=== PATIENT | female | born 1995 | race Caucasian/White ===

== ENCOUNTER 2016-02-14 14:54 | Emergency (ER) | payer OTHER ==
[~2016-02-14] VITALS: Ht 162.6 cm; Wt 71.4 kg
[~2016-02-14 14:54] MED LIST: AZIT250T4 PO; BUSP10TA2 PO; HYDR-3797 PO; HYDR50CA PO; LEVA15HF5 IH; ONDA-54 PO; RIZA10TA23 PO; VALP250C2 PO
[2016-02-14 15:01] VITALS: BP 115/75; PULSE 100; RESP 18; O2SAT 100
--- NOTE | 2016-02-14 15:58 | ED.REPORT ---
HPI-Abd Pain F Under 40 Date of Service Feb 14, 2016 ED Provider: Rasta Reich PA-C Yolis is a 20-year-old female with a chief complaint of abdominal pain. Patient reports a 4 day history of stabbing intermittent periumbilical pain that migrates laterally sometimes. She reports vomiting approximately 6 times significant for dark red blood. Complaint of orthostatic lightheadedness. Patient states that she is on her period right now his last approximately 2 weeks with heavy bleeding which she says is normal for her. Attempted to treat her abdominal pain with Midol and naproxen neither of which worked. Patient reports a history of ulcers and anxiety. Nursing Notes Stated Complaint: SOB/ABDOMINAL PAIN Chief Complaint: FLU/Cold Symptoms Nursing Notes Reviewed: Yes Allergies: Coded Allergies: hydrocodone (Verified Allergy, Severe, Hives, Itching, SOB, Throat Tightness, 02/14/16) shellfish derived (Verified Allergy, Severe, Anaphylaxis, 02/14/16) ethyl alcohol (Verified Allergy, Intermediate, Rash,Itching, 02/14/16) RUBBING ALCOHOL chocolate flavor (Verified Allergy, Unknown, 02/14/16) ketorolac (Verified Allergy, Unknown, 01/05/16) Scheduled Azithromycin (Zithromax (Z-John)) 250 Mg Tablet 250 MG PO DIRECTED Take two tablets by mouth on day 1, then take one tablet daily on days 2 through 5. Buspirone (Buspirone) 10 Mg Tablet 10 MG PO BID Buspirone (Buspirone) 10 Mg Tablet 10 MG PO BID Omeprazole (Omeprazole) 20 Mg Capsule.dr 20 MG PO DAILY Rizatriptan ODT (Maxalt STONE ROUGHER) 10 Mg Tablet 10 MG PO QID Valproic Acid (Valproic Acid) 250 Mg Capsule 250 MG PO BID Valproic Acid (Valproic Acid) 250 Mg Capsule 250 MG PO TID Swallowed whole without chewing to avoid local irritation of the mouth and throat. Scheduled PRN Hydroxyzine Pamoate (HydrOXYzine Pamoate) 25 Mg Capsule 25 MG PO TID PRN PRN For Itching Hydroxyzine Pamoate (Vistaril) 50 Mg Capsule 50 MG PO TID PRN PRN For Anxiety Levalbuterol Tartrate (Xopenex Hfa) 15 Gm Hfa.aer.ad 1 PUFF IH Q4 PRN PRN For Wheezing Ondansetron (Ondansetron) 8 Mg Tablet 8 MG PO QID PRN PRN For Nausea General Time Seen by MD: 15:41 Chief Complaint Abdominal pain Past Medical History Past Medical History ADHD Hemorrhoids bipolar disorder PTSD anxiety Reports: Depression, Migraines Past Surgical History finger fracture repair polydactyly surgery as a child Reports: Appendectomy Smoking History Current Every Day Smoker Social History Alcohol Use: Denies alcohol use Drug Use: Denies drug use Other Social History: Good social support, Local resident Occupation staying with boyfriend Ambulatory Status Independent Review of Systems General: Denies fever, chills, malaise. HEENT: Denies congestion, headache, sore throat. Respiratory: Denies dyspnea, cough, shortness of breath, wheezing. Cardiovascular: Denies chest pain, palpitations. Gastrointestinal: Admits vomiting, abdominal pain, hematemesis. Denies diarrhea , melena, hematochezia Genitourinary: Denies frequency, urgency, dysuria, hematuria. Admits Menorrhagia Otherwise as noted in HPI. Physical Exam General: Well appearing, well developed, well nourished, no acute distress. Head: Atraumatic, normocephalic. Eyes: No scleral icterus or injection. No discharge. Vision grossly intact. ENT: Voice clear, hearing grossly intact. Respiratory: Regular rate and rhythm. Breath sounds present, clear to auscultation and equal bilaterally. Cardiovascular: Slightly tachycardic. Regular rhythm, without murmur, gallop or rub. No pedal edema. Gastrointestinal: Abdomen flat and non-tender without guarding or rebound. Bowel sounds normoactive. Skin: Warm and dry. Neurological: Grossly nonfocal. Psychological: alert and oriented. Speech appropriate, linear and logical. Behavior appropriate. Initial Vital Signs Vital Signs (First) Date Time Temp Pulse Resp B/P Pulse Ox O2 Delivery O2 Flow Rate FiO2 02/14/16 15:01 36.6 100 18 115/75 100 Room Air Initial VS: Reviewed Interpretation & Diagnostics Lab Results Interpretation Result Diagram: 02/14/16 1615 02/14/16 1615 Test 02/14/16 16:15 02/14/16 16:44 White Blood Count 7.0th/mm3 (3.8-10.1) Red Blood Count 4.66mil/mm3 (3.90-5.20) Hemoglobin 14.0g/dL (12.0-15.6) Hematocrit 41.0% (35.0-46.0) Mean Corpuscular Volume 88.0fL (81-100) Mean Corpuscular Hemoglobin 30.0pg (27.0-35.0) Mean Corpuscular Hemoglobin Concent 34.1% (32.0-37.0) Red Cell Distribution Width 12.5% (12.3-15.4) Platelet Count 295bil/L (150-400) Neutrophils (%) (Auto) 49.0% (40-74) Lymphocytes (%) (Auto) 34.7% (14-46) Monocytes (%) (Auto) 9.7% (4-12) Eosinophils (%) (Auto) 6.4% (0-5) Basophils (%) (Auto) 0.1% (0-3) Sodium Level 138mEq/L (134-144) Potassium Level 3.7mEq/L (3.5-5.2) Chloride Level 104mEq/L (97-108) Carbon Dioxide Level 21mmol/L (18-29) Blood Urea Nitrogen 11mg/dL (6-20) Creatinine 0.53mg/dL (0.57-1.00) Estimat Glomerular Filtration Rate 213mL/min (>59) Glucose Level 89mg/dL (60-99) Calcium Level 9.2mg/dL (8.5-10.1) Total Bilirubin 0.4mg/dL (0.0-1.2) Aspartate Amino Transf (AST/SGOT) 20U/L (0-50) Alanine Aminotransferase (ALT/SGPT) 15U/L (0-32) Alkaline Phosphatase 78U/L (25-150) Total Protein 7.3g/dL (6.4-8.4) Albumin 4.2g/dL (3.4-5.0) Hold Lassiter Top Tube Received (Received) Hold Urine Received (Received) Re-Eval/Medical Decision Med Decision/Clinical Course Med Decision/Clinical Course: Discussed the case with Dr. tiwari This patient presented with a somewhat vague and shifting history. She reported a history of ulcers and recent hematemesis, as well as periumbilical pain without radiation that moves laterally to both sides. She denies any history of melena or hematochezia, but admits recent history of hemorrhoids with some bright red blood per rectum. Raise concern for the possibility of a bleeding ulcer. However the patient shows stable vitals and normal CBC and CMP. Patient refuses digital rectal exam to inspect for melena, agrees to return the emergency Department should she develop black tarry stools or bright red blood per rectum, presyncope/syncope, or chest pain, palpitations. Discharge & Departure Primary Impression: Abdominal pain Abdominal location: unspecified location Qualified Code: R10.9 - Unspecified abdominal pain Disposition: Home Discharge Condition All VS Reviewed: Yes Condition: Stable Patient Instructions: Acute Abdominal Pain (ED) Additional Instructions: Evaluation in the ED for abdominal pain with bloody vomit. History and physical are reassuring that this is unlikely to be an infection, appendicitis, ovarian torsion or pelvic inflammatory disease. Labs reveal no indication of infection or prolonged bleeding. You refused a rectal exam to look for bloody stool, but but labs and physical are generally reassuring that you are stable and safe for discharge to home. I will write a prescription for an acid reducing medication. Please contact your primary care physician and attempt to arrange follow-up in the next week. Return to emergency department for any new or worsening symptoms including black or tarry stools. Referrals: Sang Holley DO (PCP) EDSupervising Provider for APC: Amado Tiwari MD Attending Statment Attending attestation: I saw this patient in conjunction with the above named MLP. I was present for all gray portions of the history taking and physical examination. I agree with the workup, evaluation, treatment and disposition. Amado Tiwari MD copies to: Sang Holley Seth PA-C Feb 14, 2016 15:58 Amado Tiwari MD Feb 14, 2016 19:11
[2016-02-14 16:33] LABS: BASOPHILS % (AUTO) 0.1 % (0-3); EOSINOPHILS % (AUTO) 6.4 % (0-5); MONOCYTES % (AUTO) 9.7 % (4-12); Platelet Count 295 bil/L (150-400)
[2016-02-14] MEDS ORDERED: OMEP20CA11 PO (18:13)
[2016-02-14 18:25] VITALS: BP 101/44; PULSE 67; RESP 16; O2SAT 100
== END 2016-02-14 18:27 | disposition home or self-care (01) ==
LOC: SED 14:54
DX: R10.33 Periumbilical pain (principal); F17.200 Nicotine dependence, unspecified, uncomplicated; Z88.5 Allergy status to narcotic agent; Z88.8 Allergy status to other drugs, medicaments and biological substances

== ENCOUNTER 2016-03-05 16:28 | Emergency (ER) | payer OTHER ==
[~2016-03-05] VITALS: Ht 162.6 cm; Wt 74.1 kg
[~2016-03-05 16:28] MED LIST changes: +OMEP20CA11 PO
[2016-03-05 16:30] VITALS: BP 98/68; RESP 16; O2SAT 99
--- NOTE | 2016-03-05 18:18 | ED.REPORT ---
HPI-URI / Cough / Cold Date of Service Mar 05, 2016 ED Provider: Rasta Reich PA-C Yolis is otherwise healthy 20-year-old female who presents with chief complaint of a sore throat. She complains of "tonsil pain" this lasted for 3 weeks and is associated with congestion and a mild cough. She complains that she cannot eat because it bothers her throat. Denies rhinorrhea, fever, chills , vomiting, diarrhea, abdominal pain, shortness of breath, wheezing, ear pain, eye pain, headache. Nursing Notes Stated Complaint: COUGH,NOSE STUFFED,THROAT PAIN Chief Complaint: ENT & Mouth Nursing Notes Reviewed: Yes Allergies: Coded Allergies: hydrocodone (Verified Allergy, Severe, Hives, Itching, SOB, Throat Tightness, 02/14/16) shellfish derived (Verified Allergy, Severe, Anaphylaxis, 02/14/16) ethyl alcohol (Verified Allergy, Intermediate, Rash,Itching, 02/14/16) RUBBING ALCOHOL chocolate flavor (Verified Allergy, Unknown, 02/14/16) ketorolac (Verified Allergy, Unknown, 01/05/16) Scheduled Azithromycin (Zithromax (Z-John)) 250 Mg Tablet 250 MG PO DIRECTED Take two tablets by mouth on day 1, then take one tablet daily on days 2 through 5. Benzocaine/Menthol (Cepacol Sore Throat Lozenge) 1 Each Lozenge 1 EACH MM QID Benzonatate (Benzonatate) 100 Mg Capsule 100 MG PO TID Buspirone (Buspirone) 10 Mg Tablet 10 MG PO BID Buspirone (Buspirone) 10 Mg Tablet 10 MG PO BID Omeprazole (Omeprazole) 20 Mg Capsule.dr 20 MG PO DAILY Rizatriptan ODT (Maxalt [employer]) 10 Mg Tablet 10 MG PO QID Valproic Acid (Valproic Acid) 250 Mg Capsule 250 MG PO BID Valproic Acid (Valproic Acid) 250 Mg Capsule 250 MG PO TID Swallowed whole without chewing to avoid local irritation of the mouth and throat. Scheduled PRN Hydroxyzine Pamoate (HydrOXYzine Pamoate) 25 Mg Capsule 25 MG PO TID PRN PRN For Itching Hydroxyzine Pamoate (Vistaril) 50 Mg Capsule 50 MG PO TID PRN PRN For Anxiety Levalbuterol Tartrate (Xopenex Hfa) 15 Gm Hfa.aer.ad 1 PUFF IH Q4 PRN PRN For Wheezing Ondansetron (Ondansetron) 8 Mg Tablet 8 MG PO QID PRN PRN For Nausea General Time Seen by MD: 17:02 Chief Complaint Sore throat Past Medical History Past Medical History ADHD Hemorrhoids bipolar disorder PTSD anxiety Reports: Depression, Migraines Past Surgical History finger fracture repair polydactyly surgery as a child Reports: Appendectomy Smoking History Current Every Day Smoker Social History Alcohol Use: Denies alcohol use Drug Use: Denies drug use Other Social History: Good social support, Local resident Occupation staying with boyfriend Ambulatory Status Independent Review of Systems Negative unless stated otherwise in history of present illness Physical Exam General: Well appearing, well developed, well nourished, no acute distress. Head: Atraumatic, normocephalic. No mastoid tenderness. Eyes: No scleral icterus or injection. No discharge. PERRL. Vision grossly intact. Ears: Pinna and tragus nontender with manipulation. External auditory canal patent, atraumatic and without discharge. Tympanic membrane anderson, shiny and translucent without fluid, bulging, retraction or perforation. Hearing grossly intact. Nose: Symmetrical, nares patent without discharge. No frontal or maxillary sinus tenderness. Mouth/pharynx: normal dentition, mucus membranes moist. Tonsils 2+ and symmetrical, uvula midline. Pharynx injected, no cobblestoning or discharge. Voice clear. Neck: Mild tender anterior lymphadenopathy. Trachea midline. Respiratory: Regular rate and rhythm. Breath sounds present, clear to auscultation and equal bilaterally. Cardiovascular: Regular rate and rhythm, without murmur, gallop or rub. No pedal edema. Gastrointestinal: Abdomen flat and non-tender without guarding or rebound. Bowel sounds normoactive. Skin: Warm and dry. Neurological: Grossly nonfocal. Psychological: Alert and oriented. Speech appropriate, linear and logical. Behavior appropriate. Initial Vital Signs Vital Signs (First) Date Time Temp Pulse Resp B/P Pulse Ox O2 Delivery O2 Flow Rate FiO2 03/05/16 16:30 36.0 82 16 98/68 99 Initial VS: Reviewed, Vital signs normal Re-Eval/Medical Decision Med Decision/Clinical Course Otherwise healthy 20-year-old female presents with chief complaint of sore throat. She complains her tonsils have felt inflamed and difficult to swallow for 3 weeks. History and physical are quite reassuring, revealing only a slightly injected pharynx with 2+ tonsils without exudate and mild tender anterior lymphadenopathy. This is not an emergent condition such as peritonsillar abscess, Jagjit's angina or a treatable condition such as strep throat. Offered symptomatic care, provided prescription for Cepacol lozenges Tessalon Perle. Recommended primary care follow-up, provided return precautions Discharge & Departure Impression: Primary Impression: Upper respiratory infection URI type: unspecified viral URI Qualified Code: J06.9 - Acute upper respiratory infection, unspecified Disposition: Home Discharge Condition All VS Reviewed: Yes Condition: Stable Patient Instructions: Upper Respiratory Infection (ED) Additional Instructions: History and physical are reassuring that this is unlikely to be a condition such as tonsillitis or strep throat that requires antibiotic treatment. I believe that you have a viral upper respiratory infection. Rest, drink small amounts of fluids throughout the day, and eat small amounts of food as tolerated. The treatment is largely symptomatic: -I typically recommend doxylamine/ dextromethorphan (brand name: Robitussin Extra Strength Nighttime Cough DM) for use at night, which will help you sleep and reduce cough. If your pharmacy does not have this, ask your pharmacist to recommend an alternative. -Pain and fever is best treated with 400 mg of ibuprofen (Advil, Motrin) every 6 hours, or 1000 mg of acetaminophen (Tylenol) every 6 hours. These drugs can be taken at the same time for more severe pain. -Pseudoephedrine (Sudafed) taken in the morning will help relieve nasal congestion. In many pharmacies this is kept behind the counter, so ask the pharmacist. -Cepacol lozenges are very helpful for sore throat. I will provide prescriptions for lozenges and Tessalon Perles to help with cough. Follow-up with your primary care provider if your symptoms have not significantly improved in a week. Remember that sometimes a cough can take up to a month to completely resolve. Return to the emergency department for new or worsening symptoms including chest pain, shortness of breath, difficulty breathing or speaking. Referrals: Sang Holley DO (PCP) EDSupervising Provider for APC: Mustapha Gil MD copies to: Sang Holley Seth PA-C Mar 05, 2016 18:18
[2016-03-05] MEDS ORDERED: BENZ1LOZ60 MM (18:21)
[2016-03-05] MEDS ORDERED: BENZ100C8 PO (18:21)
[2016-03-05 19:02] VITALS: BP 100/65; PULSE 84; RESP 16; O2SAT 99
== END 2016-03-05 18:56 | disposition home or self-care (01) ==
LOC: SED 16:28
DX: J06.9 Acute upper respiratory infection, unspecified (principal); F17.200 Nicotine dependence, unspecified, uncomplicated; Z88.5 Allergy status to narcotic agent; Z88.8 Allergy status to other drugs, medicaments and biological substances; Z91.013 Allergy to seafood; Z91.018 Allergy to other foods

== ENCOUNTER 2016-04-08 00:52 | Emergency (ER) | payer OTHER ==
[~2016-04-08] VITALS: Ht 162.6 cm; Wt 73.6 kg
[~2016-04-08 00:52] MED LIST changes: +BENZ100C8 PO; +BENZ1LOZ60 MM
[2016-04-08 00:54] VITALS: BP 110/64; PULSE 100; RESP 16; O2SAT 100
--- NOTE | 2016-04-08 01:04 | ED.REPORT ---
HPI-General Illness Date of Service Apr 08, 2016 ED Provider: Dr. Metcalf Pt is a 20 y/o female w/ a hx of psychiatric illnesses presenting to the ED c/o back pain onset 3 days ago. She woke up with this pain and does not know of any mechanism of injury. Her pain is mostly lumbar with radiation to the thoracic area. She experienced some right leg numbness earlier in the day which has resolved at this point. She vomited once secondary to pain earlier in the day. Pt denies bowel or bladder incontinence, saddle anesthesia, weakness of the legs , abdominal pain, chest pain, SOB, fever, chills, dysuria. Nursing Notes Stated Complaint: BACK PAIN Chief Complaint: Back Pain or Injury Nursing Notes Reviewed: Yes Allergies: Coded Allergies: hydrocodone (Verified Allergy, Severe, Hives, Itching, SOB, Throat Tightness, 02/14/16) shellfish derived (Verified Allergy, Severe, Anaphylaxis, 02/14/16) ethyl alcohol (Verified Allergy, Intermediate, Rash,Itching, 02/14/16) RUBBING ALCOHOL chocolate flavor (Verified Allergy, Unknown, 02/14/16) ketorolac (Verified Allergy, Unknown, 01/05/16) Scheduled Azithromycin (Zithromax (Z-John)) 250 Mg Tablet 250 MG PO DIRECTED Take two tablets by mouth on day 1, then take one tablet daily on days 2 through 5. Benzocaine/Menthol (Cepacol Sore Throat Lozenge) 1 Each Lozenge 1 EACH MM QID Benzonatate (Benzonatate) 100 Mg Capsule 100 MG PO TID Buspirone (Buspirone) 10 Mg Tablet 10 MG PO BID Buspirone (Buspirone) 10 Mg Tablet 10 MG PO BID Omeprazole (Omeprazole) 20 Mg Capsule.dr 20 MG PO DAILY Rizatriptan ODT (Maxalt [employer]) 10 Mg Tablet 10 MG PO QID Valproic Acid (Valproic Acid) 250 Mg Capsule 250 MG PO BID Valproic Acid (Valproic Acid) 250 Mg Capsule 250 MG PO TID Swallowed whole without chewing to avoid local irritation of the mouth and throat. Scheduled PRN Cyclobenzaprine (Cyclobenzaprine) 10 Mg Tablet 10 MG PO TID PRN PRN Spasm Hydroxyzine Pamoate (HydrOXYzine Pamoate) 25 Mg Capsule 25 MG PO TID PRN PRN For Itching Hydroxyzine Pamoate (Vistaril) 50 Mg Capsule 50 MG PO TID PRN PRN For Anxiety Levalbuterol Tartrate (Xopenex Hfa) 15 Gm Hfa.aer.ad 1 PUFF IH Q4 PRN PRN For Wheezing Naproxen (Naprosyn) 500 Mg Tablet 500 MG PO BID PRN PRN For Pain Ondansetron (Ondansetron) 8 Mg Tablet 8 MG PO QID PRN PRN For Nausea General Time Seen by MD: 01:10 Chief Complaint Back pain Hx Obtained From: Patient Arrived By: Walk-in Sudden in Onset?: No Onset Occurred: 3 days ago Symptom Duration: Since onset Location: : Back Quality: Painful Radiation: : Does not radiate Severity: Current: Moderate Severity: Maximum: Moderate Similar Sx Previous: No Past Medical History Past Medical History ADHD Hemorrhoids bipolar disorder PTSD anxiety Reports: Depression, Migraines Past Surgical History finger fracture repair polydactyly surgery as a child Reports: Appendectomy Smoking History Current Every Day Smoker Social History Alcohol Use: Denies alcohol use Drug Use: Denies drug use Other Social History: Good social support, Local resident Occupation staying with boyfriend Ambulatory Status Independent Review of Systems Full Review of Systems Constitutional: Denies: Chills, Fever Respiratory: Denies: Non-productive cough, Shortness of breath Cardiovascular: Denies: Chest pain GI: Reports: Vomiting, Denies: Nausea Female: Denies: Dysuria Musculoskeletal: Reports: Back pain Neurologic: Reports: Numbness, Denies: Bladder dysfunction, Bowel dysfunction, Weakness Complete sys rev & neg: except as marked. Physical Exam Vital Signs Vital Signs Date Time Temp Pulse Resp B/P Pulse Ox O2 Delivery O2 Flow Rate FiO2 04/08/16 01:41 36.4 100 18 126/72 100 Room Air 04/08/16 00:54 36.3 100 16 110/64 100 Room Air Initial VS: Reviewed, Vital signs normal Head / Eyes: Atraumatic, Normocephalic, PERRL ENT: Mucous membranes moist, Conjunctiva normal, No scleral icterus Neck: Supple, Full range of motion Respiratory: Breath sounds normal, Clear to auscultation, No respiratory distress Cardiovascular: Regular rate & rhythm, Heart sounds normal, Intact distal pulses Abdomen / GI: Soft, Non-tender Extremities: Vascular intact, Neuro intact, No swelling, No tenderness Skin: Warm, Dry, No cyanosis Psychiatric: Mood/affect normal, Behavior normal, Normal thought content General/Constitutional: Awake, Alert, No acute distress, Cooperative, Not toxic appearing Back: Atraumatic, Full range of motion, Painless range of motion, No CVA tenderness Mild tenderness paraspinous muscles diffuse Neurologic: Oriented X3, Speech NL, No motor deficits, No sensory deficits, Memory NL Re-Eval/Medical Decision Med Decision/Clinical Course 20-year-old with multiple ER visits presents with low back pain uncertain etiology. No specific impact injury or overuse recalled. Reports intermittent right leg numbness not present at the moment. No other worrisome findings as far as neuropathy. No incontinence. No indication for imaging. Provided with cyclobenzaprine and Naprosyn and Tylenol. Specific desire for narcotics addressed with the general guidelines not use narcotics for low back pain, as issued by the [employer]. Discharged in stable condition. Source of Hx: Old records Time of Eval: 01:35 Patient Status: Moderate relief, Pain improved Re-Evaluation/Progress Note: Pt rechecked. Informed pt of plan for treatment. Pt understands and agrees with plan for treatment. F/U instructions and RTER warnings given. All questions addressed. Counseled Regarding: Diagnosis, Need for follow-up, When/why to return to ED Discharge & Departure Primary Impression: Low back pain Chronicity: acute Back pain laterality: bilateral Sciatica presence: with sciatica Sciatica laterality: sciatica of right side Qualified Code: M54.41 - Lumbago with sciatica, right side Disposition: Home Discharge Condition All VS Reviewed: Yes Condition: Stable Patient Instructions: Low Back Strain (ED), Sciatica (ED) Additional Instructions: The [employer] has come out strongly against the use of opiate pain relievers in back pain. Almost all of back pain is self-limited, and will resolve with rest. Muscle relaxers and nonsteroidals can be helpful. Massage and physical therapy appear to be equally helpful. Call your doctor tomorrow for follow-up. She can refer you for physical therapy , or offer manipulative therapy herself. Seek immediate attention if you develop incontinence of bowel or bladder. Begin Naprosyn twice daily. Begin cyclobenzaprine three times daily. Referrals: Sang Holley DO (PCP) Aric Attestation Portions of this note were transcribed by Soto Liu. I, Dr. Metcalf personally performed the history, physical exam and medical decision-making; I reviewed and confirmed the accuracy of the information in the transcribed note. Signed by Aric Gaffney, 04/08/16 - 0130 copies to: Sang Holley Christopher W MD Apr 08, 2016 01:04 SOTO LIU Apr 08, 2016 01:16
[2016-04-08] MEDS ORDERED: NAPR500T PO (01:30)
[2016-04-08] MEDS ORDERED: CYCL10TA9 PO (01:30)
[2016-04-08 01:41] VITALS: BP 126/72; PULSE 100; RESP 18; O2SAT 100
== END 2016-04-08 01:43 | disposition home or self-care (01) ==
LOC: SED 00:52
DX: M54.41 Lumbago with sciatica, right side (principal); F31.9 Bipolar disorder, unspecified; F17.200 Nicotine dependence, unspecified, uncomplicated; Z88.5 Allergy status to narcotic agent; Z88.8 Allergy status to other drugs, medicaments and biological substances; Z88.6 Allergy status to analgesic agent

== ENCOUNTER 2016-06-23 05:16 | Emergency (ER) | payer OTHER ==
[~2016-06-23] VITALS: Ht 162.6 cm; Wt 65.0 kg
[~2016-06-23 05:16] MED LIST changes: +CYCL10TA9 PO; +NAPR500T PO
[2016-06-23 05:24] VITALS: BP 109/67; PULSE 98; RESP 16; O2SAT 98
--- NOTE | 2016-06-23 06:06 | ED.REPORT ---
HPI-URI / Cough / Cold Date of Service June 23, 2016 ED Provider: Pal Watetrs DO The pt is a 20 y/o female w/ a hx of depression, anxiety, PTSD, and ADHD presenting to the ED complaining of a cough onset 4 days ago. She is also experiencing a sore throat, vomiting, and SOB when she lays down. Her partner recently had bronchitis and has finished his course of antibiotics. Nursing Notes Stated Complaint: VOMITING/SORE THROAT/COUGH Chief Complaint: FLU/Cold Symptoms Nursing Notes Reviewed: Yes Allergies: Coded Allergies: hydrocodone (Verified Allergy, Severe, Hives, Itching, SOB, Throat Tightness, 02/14/16) shellfish derived (Verified Allergy, Severe, Anaphylaxis, 02/14/16) ethyl alcohol (Verified Allergy, Intermediate, Rash,Itching, 02/14/16) RUBBING ALCOHOL chocolate flavor (Verified Allergy, Unknown, 02/14/16) ketorolac (Verified Allergy, Unknown, 01/05/16) Scheduled Azithromycin (Zithromax (Z-John)) 250 Mg Tablet 250 MG PO DIRECTED Take two tablets by mouth on day 1, then take one tablet daily on days 2 through 5. Benzocaine/Menthol (Cepacol Sore Throat Lozenge) 1 Each Lozenge 1 EACH MM QID Benzonatate (Benzonatate) 100 Mg Capsule 100 MG PO TID Buspirone (Buspirone) 10 Mg Tablet 10 MG PO BID Buspirone (Buspirone) 10 Mg Tablet 10 MG PO BID Omeprazole (Omeprazole) 20 Mg Capsule.dr 20 MG PO DAILY Rizatriptan ODT (Maxalt THERMOMETER MAKER) 10 Mg Tablet 10 MG PO QID Valproic Acid (Valproic Acid) 250 Mg Capsule 250 MG PO BID Valproic Acid (Valproic Acid) 250 Mg Capsule 250 MG PO TID Swallowed whole without chewing to avoid local irritation of the mouth and throat. Scheduled PRN Benzonatate (Tessalon Perle) 100 Mg Capsule 100 MG PO TID PRN PRN For Cough Cyclobenzaprine (Cyclobenzaprine) 10 Mg Tablet 10 MG PO TID PRN PRN Spasm Hydroxyzine Pamoate (HydrOXYzine Pamoate) 25 Mg Capsule 25 MG PO TID PRN PRN For Itching Hydroxyzine Pamoate (Vistaril) 50 Mg Capsule 50 MG PO TID PRN PRN For Anxiety Levalbuterol Tartrate (Xopenex Hfa) 15 Gm Hfa.aer.ad 1 PUFF IH Q4 PRN PRN For Wheezing Naproxen (Naprosyn) 500 Mg Tablet 500 MG PO BID PRN PRN For Pain Ondansetron (Ondansetron) 8 Mg Tablet 8 MG PO QID PRN PRN For Nausea Ondansetron ODT (Zofran ODT) 4 Mg Tablet 4 MG PO Q4H PRN PRN For Nausea General Time Seen by MD: 06:05 Chief Complaint Cough, non-productive Hx Obtained From: Patient Arrived By: Walk-in Onset Occurred: 4 days ago Symptom Duration: Since onset Severity: Current: No pain currently Severity: Maximum: No pain Recent Healthcare: No recent doctor visit, No recent hospitalization Past Medical History Past Medical History ADHD Hemorrhoids bipolar disorder PTSD anxiety Reports: Depression, Migraines Past Surgical History finger fracture repair polydactyly surgery as a child Reports: Appendectomy Smoking History Current Every Day Smoker Social History Alcohol Use: Denies alcohol use Drug Use: Denies drug use Other Social History: Good social support, Local resident Occupation staying with boyfriend Ambulatory Status Independent Review of Systems Constitutional: Denies: Fever Ears / Nose / Throat: Reports: Sore throat Respiratory: Reports: Non-productive cough, Shortness of breath GI: Reports: Vomiting Complete sys rev & neg: except as marked. Physical Exam Initial Vital Signs Vital Signs (First) Date Time Temp Pulse Resp B/P Pulse Ox O2 Delivery O2 Flow Rate FiO2 06/23/16 05:24 36.1 98 16 109/67 98 Room Air Initial VS: Reviewed, Vital signs normal General/Constitutional: Awake, Alert, No acute distress, Cooperative, Not toxic appearing ENT: Atraumatic, Airway patent, Mucous membranes moist Respiratory / Chest: Atraumatic, Breath sounds NL, Breath sounds = bilat, No respiratory distress, No rales, No rhonchi, No wheezing, No stridor Head / Eyes: Atraumatic, Normocephalic Neck: Atraumatic, Supple, Full range of motion Cardiovascular: Heart rate NL, Regular rhythm, Heart sounds NL Skin: Atraumatic, Color NL, No rash, Warm, Dry Neurologic: Oriented X3, Speech NL Back: Atraumatic, Full range of motion Psychiatric: Affect NL, Mood NL Re-Eval/Medical Decision Med Decision/Clinical Course Med Decision/Clinical Course: Reassuring exam, supportive care given. Source of Hx: Old records Re-Evaluation/Progress : Time of Eval: 06:45 Re-Evaluation/Progress Note: Pt rechecked. Informed pt of plan for treatment. Pt understands and agrees with plan for treatment. F/U instructions and RTER warnings given. All questions addressed. Counseled Regarding: Diagnosis, Need for follow-up, When/why to return to ED Discharge & Departure Impression: Primary Impression: Upper respiratory infection URI type: unspecified URI Qualified Code: J06.9 - Acute upper respiratory infection, unspecified Disposition: Home Discharge Condition All VS Reviewed: Yes Condition: Stable Take Tessalon Perles and Zofran as needed for cough and vomiting. Follow-up with your primary care doctor. Return to the ER as needed if worse. Referrals: NOPCP (PCP) Scribe Attestation Portions of this note were transcribed by Helder Nagel and Soto Liu. I, Dr. Miguel Parkinson personally performed the history, physical exam and medical decision- making; I reviewed and confirmed the accuracy of the information in the transcribed note. Signed by: Harman Slater, 06/23/16 and 0646. Pal Watters DO June 23, 2016 06:06 Helder Nagel June 23, 2016 06:20 SOTO LIU June 23, 2016 06:51
[2016-06-23] MEDS ORDERED: ONDA4TAB9 PO (06:23)
[2016-06-23] MEDS ORDERED: BENZ-12 PO (06:23)
[2016-06-23 06:32] VITALS: BP 112/70; PULSE 90; RESP 17; O2SAT 99
== END 2016-06-23 06:33 | disposition home or self-care (01) ==
LOC: SED 05:16
DX: J06.9 Acute upper respiratory infection, unspecified (principal); F90.9 Attention-deficit hyperactivity disorder, unspecified type; F32.9 Major depressive disorder, single episode, unspecified; F31.9 Bipolar disorder, unspecified; F17.200 Nicotine dependence, unspecified, uncomplicated; Z88.5 Allergy status to narcotic agent; Z91.018 Allergy to other foods; Z91.013 Allergy to seafood

== ENCOUNTER 2016-08-05 22:57 | Emergency (ER) | payer OTHER ==
[~2016-08-05] VITALS: Ht 165.1 cm; Wt 65.0 kg
[~2016-08-05 22:57] MED LIST changes: +BENZ-12 PO; +ONDA4TAB9 PO
[2016-08-05 22:59] VITALS: BP 121/76; PULSE 84; RESP 16; O2SAT 99
--- NOTE | 2016-08-05 23:17 | ED.REPORT ---
HPI-General Illness Date of Service Aug 05, 2016 ED Provider: Travis Mendes DO A 20 year old female with a history of bipolar disorder, anxiety, depression, migraines and hemorrhoids presents to the ED complaining of vomiting. The pt woke this morning and experienced several bouts of vomiting which thinks that she may have contained blood. The pt also complains of low back pain, fever, chills, and lightheadedness when she stands, but denies diarrhea or cough. She also denies history of ulcer. Nursing Notes Stated Complaint: VOMITING BLOOD, PASSED OUT, BACK PAIN Chief Complaint: General Complaint Nursing Notes Reviewed: Yes Allergies: Coded Allergies: hydrocodone (Verified Allergy, Severe, Hives, Itching, SOB, Throat Tightness, 02/14/16) shellfish derived (Verified Allergy, Severe, Anaphylaxis, 02/14/16) ethyl alcohol (Verified Allergy, Intermediate, Rash,Itching, 02/14/16) RUBBING ALCOHOL chocolate flavor (Verified Allergy, Unknown, 02/14/16) ketorolac (Verified Allergy, Unknown, 01/05/16) Scheduled Azithromycin (Zithromax (Z-John)) 250 Mg Tablet 250 MG PO DIRECTED Take two tablets by mouth on day 1, then take one tablet daily on days 2 through 5. Benzocaine/Menthol (Cepacol Sore Throat Lozenge) 1 Each Lozenge 1 EACH MM QID Benzonatate (Benzonatate) 100 Mg Capsule 100 MG PO TID Buspirone (Buspirone) 10 Mg Tablet 10 MG PO BID Buspirone (Buspirone) 10 Mg Tablet 10 MG PO BID Omeprazole (Omeprazole) 20 Mg Capsule.dr 20 MG PO DAILY Rizatriptan ODT (Maxalt CHIEF CATALYST OPERATOR) 10 Mg Tablet 10 MG PO QID Valproic Acid (Valproic Acid) 250 Mg Capsule 250 MG PO BID Valproic Acid (Valproic Acid) 250 Mg Capsule 250 MG PO TID Swallowed whole without chewing to avoid local irritation of the mouth and throat. Scheduled PRN Benzonatate (Tessalon Perle) 100 Mg Capsule 100 MG PO TID PRN PRN For Cough Cyclobenzaprine (Cyclobenzaprine) 10 Mg Tablet 10 MG PO TID PRN PRN Spasm Hydroxyzine Pamoate (HydrOXYzine Pamoate) 25 Mg Capsule 25 MG PO TID PRN PRN For Itching Hydroxyzine Pamoate (Vistaril) 50 Mg Capsule 50 MG PO TID PRN PRN For Anxiety Levalbuterol Tartrate (Xopenex Hfa) 15 Gm Hfa.aer.ad 1 PUFF IH Q4 PRN PRN For Wheezing Naproxen (Naprosyn) 500 Mg Tablet 500 MG PO BID PRN PRN For Pain Ondansetron (Ondansetron) 8 Mg Tablet 8 MG PO QID PRN PRN For Nausea Ondansetron ODT (Zofran ODT) 4 Mg Tablet 4 MG PO Q4H PRN PRN For Nausea General Time Seen by MD: 23:16 Chief Complaint Vomiting Hx Obtained From: Patient Arrived By: Walk-in Sudden in Onset?: No Onset Occurred: 5 - 8 hours ago Recent Healthcare: No recent hospitalization, Recent doctor visit Similar Sx Previous: No Past Medical History Past Medical History ADHD Hemorrhoids bipolar disorder PTSD anxiety Reports: Depression, Migraines Past Surgical History finger fracture repair polydactyly surgery as a child Reports: Appendectomy Smoking History Current Every Day Smoker Social History Alcohol Use: Denies alcohol use Drug Use: Denies drug use Other Social History: Good social support, Local resident Occupation staying with boyfriend Ambulatory Status Independent Review of Systems Full Review of Systems Constitutional: Reports: Chills, Fever Respiratory: Denies: Non-productive cough, Shortness of breath Cardiovascular: Denies: Chest pain GI: Reports: Hematemesis, Nausea, Vomiting Musculoskeletal: Reports: Back pain, Denies: Neck pain Skin: Denies Rash Neurologic: Reports: Lightheaded Complete sys rev & neg: except as marked. Physical Exam Vital Signs Vital Signs Date Time Temp Pulse Resp B/P Pulse Ox O2 Delivery O2 Flow Rate FiO2 08/06/16 01:55 36.6 64 16 103/63 100 Room Air 08/05/16 22:59 37 84 16 121/76 99 Room Air Initial VS: Reviewed General/Constitutional: Awake, Alert Head / Eyes: Atraumatic, Normocephalic, PERRL, EOMI ENT: Atraumatic, Airway patent, Mucous membranes moist Neck: Atraumatic, Supple, Full range of motion Respiratory / Chest: Atraumatic, Breath sounds NL, Breath sounds = bilat, No respiratory distress Cardiovascular: Heart rate NL, Regular rhythm, Heart sounds NL Abdomen: Atraumatic, Soft, Non-tender Back: Atraumatic, Full range of motion Upper Extremities Upper Extremity / MS: Atraumatic, Full range of motion Lower Extremity / Pelvis / MS: Atraumatic, Full range of motion Skin: Color NL, No rash, Warm, Dry insect bites Neurologic: Oriented X3, Speech NL, No motor deficits, No sensory deficits Psychiatric: Affect NL, Mood NL Interpretation & Diagnostics Lab Results Interpretation Result Diagram: 08/06/16 0123 08/05/16 2344 Test 08/05/16 23:44 08/05/16 23:57 08/06/16 01:23 White Blood Count 9.1th/mm3 (3.8-10.1) Red Blood Count 4.75mil/mm3 (3.90-5.20) Mean Corpuscular Volume 85.3fL (81-100) Mean Corpuscular Hemoglobin 30.3pg (27.0-35.0) Mean Corpuscular Hemoglobin Concent 35.6% (32.0-37.0) Red Cell Distribution Width 12.2% (12.3-15.4) Platelet Count 293bil/L (150-400) Neutrophils (%) (Auto) 43.0% (40-74) Lymphocytes (%) (Auto) 41.7% (14-46) Monocytes (%) (Auto) 8.4% (4-12) Eosinophils (%) (Auto) 6.6% (0-5) Basophils (%) (Auto) 0.2% (0-3) Sodium Level 139mEq/L (134-144) Potassium Level 3.8mEq/L (3.5-5.2) Chloride Level 104mEq/L (97-108) Carbon Dioxide Level 20mmol/L (18-29) Blood Urea Nitrogen 14mg/dL (6-20) Creatinine 0.56mg/dL (0.57-1.00) Estimat Glomerular Filtration Rate 200mL/min (>59) Glucose Level 80mg/dL (60-99) Calcium Level 9.2mg/dL (8.5-10.1) Total Bilirubin 0.2mg/dL (0.0-1.2) Aspartate Amino Transf (AST/SGOT) 22U/L (0-50) Alanine Aminotransferase (ALT/SGPT) 26U/L (0-32) Alkaline Phosphatase 78U/L (25-150) Total Protein 7.4g/dL (6.4-8.4) Albumin 4.4g/dL (3.4-5.0) Hold Lassiter Top Tube Received (Received) Urine Color Yellow (YELLOW) Urine Appearance Clear (CLEAR,HAZY) Urine pH 8.0 (5.0-8.0) Urine Specific [place] 1.015 (1.003-1.035) Urine Protein Negativemg/dL (NEG,TRACE) Urine Glucose (UA) Negativemg/dL (NEGATIVE) Urine Ketones Negativemg/dL (NEGATIVE) Urine Occult Blood Negative (NEGATIVE) Urine Nitrite Negative (NEGATIVE) Urine Bilirubin Negative (NEGATIVE) Urine Urobilinogen Normalmg/dL (NORMAL) Urine Leukocyte Esterase Negative (NEGATIVE) Urine RBC 0-2/hpf (0-2) Urine WBC 0-5/hpf (0-5) Urine Epithelial Cells Moderate/hpf (NONE-MOD) Urine Crystals None seen (NONE SEEN) Urine Bacteria Moderate/hpf (NONE-FEW) Urine Hyaline Casts None/lpf (NONE) Urine Granular Casts None seen (NONE SEEN) Urine Waxy Casts None seen (NONE SEEN) Urine Red Blood Cell Casts None seen (NONE SEEN) Urine White Blood Cell Casts None seen (NONE SEEN) Urine Mucus Present (None Seen) Urine Trichomonas None seen (NONE SEEN) Urine Yeast None (NONE SEEN) Urinalysis Comment None Urine Culture Reflexed Indicated Hemoglobin 13.8g/dL (12.0-15.6) Hematocrit 38.9% (35.0-46.0) Pulse Oximetry Interpretation Pulse Oximetry Interpretation: 99% on room air Pulse Oximetry: Pulse Ox normal ECG Interpretation ECG Interpretation: normal sinus rhythm with a rate of 78 Time: 23:47 Interpreted by: ED physician Re-Eval/Medical Decision Med Decision/Clinical Course Consider Amberly-Robles tear most likely. Serial H&H's were stable. No hematemesis and no melanotic stools. Labs are reassuring. EKG is normal. Pulmonary emboli rule out criteria met. PE workup not indicated. IV Protonix and fluids given. Zofran for nausea. We will place her on a course of Protonix and close outpatient follow-up. Source of Hx: Old records Time of Eval: 01:33 Patient Status: Condition improved Re-Evaluation/Progress Note: Pt rechecked, who is comfortable. The diagnosis and plan for discharge are discussed. The pt understands and agrees with the plan. All questions are addressed at this time. Counseled Regarding: Diagnosis, Lab results, Need for follow-up, When/why to return to ED Discharge & Departure Primary Impression: Vomiting Vomiting type: unspecified Vomiting Intractability: non-intractable Nausea presence: with nausea Qualified Code: R11.2 - Nausea with vomiting, unspecified Additional Impressions: Hematemesis Nausea presence: with nausea Qualified Code: K92.0 - Hematemesis Insect bites Encounter type: initial encounter Qualified Code: W57.XXXA - Bitten or stung by nonvenomous insect and other nonvenomous arthropods, initial encounter Disposition: Home Discharge Condition All VS Reviewed: Yes Condition: Stable Patient Instructions: Acute Nausea and Vomiting (ED), Hematemesis (ED) Additional Instructions: Maintain a clear liquid diet and advance as tolerated. Protonix once daily for four weeks. Take Zofran every eight hours as needed for nausea. Call your primary care physician and Dr. Shaw (gastroenterology) in the morning to arrange follow up appointments this week. Return to the emergency department if you develop any new or worsening symptoms including further bleeding. We are culturing your urine. If this grows out bacteria, you will need to be on antibiotics. Discuss this with your primary care physician, who you should follow up with this week. Referrals: [facility] Aric Attestation Portions of this note were transcribed by Vilma Lizama. I, Dr. Mendes personally performed the history, physical exam and medical decision-making; I reviewed and confirmed the accuracy of the information in the transcribed note. Signed by: Aric Barksdale, 08/06/2016 and 0134. copies to: [facility] Travis Mendes DO Aug 05, 2016 23:17 VILMA LIZAMA Aug 05, 2016 23:37
[2016-08-05] MEDS ORDERED: Pantoprazole 4 mg/mL 10 mL Inj IVPUSH ONE (23:35)
[2016-08-05] MEDS ORDERED: fentaNYL-PF 50 mCg/mL 2 mL Inj IVPUSH PRN (23:35)
[2016-08-05] MEDS ORDERED: 0.9% Sodium Chloride 1,000 ML IV ONE (23:35)
[2016-08-05] MEDS ORDERED: Ondansetron 2 mg/mL 2 mL Inj IVPUSH PRN (23:40)
[2016-08-05 23:59] LABS: BASOPHILS % (AUTO) 0.2 % (0-3); EOSINOPHILS % (AUTO) 6.6 % (0-5); MONOCYTES % (AUTO) 8.4 % (4-12); Mean Corpuscular Hemoglobin 30.3 pg (27.0-35.0); Mean Corpuscular Volume 85.3 fL (81-100); Platelet Count 293 bil/L (150-400)
[2016-08-06] MEDS ORDERED: hydrOXYzine Inj 50 MG/1 mL SDV IM ONE (00:05)
[2016-08-06 00:06] LABS: APPEARANCE,URINE CLEAR (CLEAR,HAZY); COLOR,URINE YELLOW (YELLOW); OCCULT BLOOD,URINE NEGATIVE (NEGATIVE); UROBILINOGEN,URINE NORMAL (NORMAL)
[2016-08-06] MEDS ORDERED: _Ondansetron ODT 4 mg Tablet PO PRN (01:10)
[2016-08-06 01:55] VITALS: BP 103/63; PULSE 64; RESP 16; O2SAT 100
[2016-08-14] MEDS ORDERED: DEP250A PO (16:47)
[2016-08-14] MEDS ORDERED: PNV1TABL81 PO (16:47)
== END 2016-08-06 01:55 | disposition home or self-care (01) ==
LOC: SED 22:57
DX: K92.0 Hematemesis (principal); W57.XXXA Bitten or stung by nonvenomous insect and other nonvenomous arthropods, initial encounter; Y93.9 Activity, unspecified; Y92.9 Unspecified place or not applicable; Y99.8 Other external cause status; F43.10 Post-traumatic stress disorder, unspecified; F17.200 Nicotine dependence, unspecified, uncomplicated; Z79.899 Other long term (current) drug therapy; Z88.5 Allergy status to narcotic agent; Z91.013 Allergy to seafood; Z88.8 Allergy status to other drugs, medicaments and biological substances; Z91.018 Allergy to other foods; R11.2 Nausea with vomiting, unspecified; M54.9 Dorsalgia, unspecified; R42 Dizziness and giddiness; R50.9 Fever, unspecified
CPT/HCPCS: 36415; 80053; 81000; 81025; 85014; 85018; 85025; 87086; 87088; 93005; 96361; 96374; 96375; 99285; J1200; J2405; J3010; J7030

== ENCOUNTER 2016-08-15 12:01 | Day surgery (SDC) | payer OTHER ==
[~2016-08-15] VITALS: Ht 162.6 cm; Wt 65.8 kg
[~2016-08-15 12:01] MED LIST changes: -AZIT250T4 PO; -BENZ-12 PO; -BENZ100C8 PO; -BENZ1LOZ60 MM; -BUSP10TA2 PO; -CYCL10TA9 PO; +DEP250A PO; -NAPR500T PO; -ONDA-54 PO; +PNV1TABL81 PO; -VALP250C2 PO
[2016-08-15] MEDS ORDERED: Propofol 10,000 mCg/mL 20 mL Inj ONE (12:02)
[2016-08-15 13:03] VITALS: BP 106/61; PULSE 78; RESP 16; O2SAT 98
--- NOTE | 2016-08-15 13:25 | PCM.HPANE ---
Patient Data Surgeon Admitting Provider: Attending Provider:Keisha Shaw MD Primary Care Physician:Clinic,[facility] Residency Other Provider:Rosalia Francois Anesthesia Reason for Visit Nausea & Vomiting Ht/WT & BMI Height (Feet): 5 Height (Inches): 4 Weight (Kilograms): 65.77 Body Mass Index 24.00 Allergies Coded Allergies: hydrocodone (Verified Allergy, Severe, Hives, Itching, SOB, Throat Tightness, 08/15/16) shellfish derived (Verified Allergy, Severe, Anaphylaxis, 08/15/16) ethyl alcohol (Verified Allergy, Intermediate, Rash,Itching, 08/15/16) RUBBING ALCOHOL chocolate flavor (Verified Allergy, Unknown, 08/15/16) ketorolac (Verified Allergy, Unknown, 08/15/16) Past Anesthesia History Anesthesia History: Denies:: Abnormal Airway, Anesthesia Reactions, Difficult Intubation, Fam Anesthesia Reaction, Fam Malignant Hypertherm, Malignant Hyperthermia Diabetes History Hx Diabetes?: No MRSA MRSA: No Medications Active Scripts Ondansetron ODT (Zofran ODT)4 Mg Tablet4 Mg PO Q4H PRN For Nausea #6 TABLET Prov:Pal Watters DO 06/23/16 Omeprazole 20 Mg Capsule.dr20 Mg PO DAILY #30 CAPSULE Ref 0 Prov:Rasta Reich PA-C 02/14/16 Hydroxyzine Pamoate (Vistaril)50 Mg Iplbgfg95 Mg PO TID PRN For Anxiety #30 CAPSULE Ref 0 Prov:Derrell Metcalf MD 01/22/16 Levalbuterol Tartrate (Xopenex Hfa)15 Gm Hfa.aer.ad1 Puff IH Q4 PRN For Wheezing #1 INH Prov:Derrell Metcalf MD 01/09/16 Hydroxyzine Pamoate (HydrOXYzine Pamoate)25 Mg Cruzviq25 Mg PO TID PRN For Itching #20 CAPSULE Ref 0 Prov:Christiano Tirado MD 01/02/16 Rizatriptan ODT (Maxalt ASSISTANT TEACHER PRIMARY)10 Mg Usdics23 Mg PO QID #10 TABLET Prov:Derrell Metcalf MD 12/21/15 Reported Medications Pnv No.122/Iron/Folic Acid ( Multi Tablet)27 Mg Iron-800 Mcg Tablet1 Each PO DAILY 08/14/16 Discontinued Reported Medications Divalproex (Depakojd RAMESH)250 Mg Admcrf156 Mg PO BID Ref 0 Swallowed whole without chewing to avoid local irritation of the mouth and throat. 08/14/16 Buspirone 10 Mg Rlkmva65 Mg PO BID Ref 0 04/06/15 Valproic Acid 250 Mg Xjhhhmc741 Mg PO BID #60 04/06/15 Discontinued Scripts Benzonatate (Tessalon Perle)100 Mg Dbvivqx574 Mg PO TID PRN For Cough #12 CAPSULE Prov:Pal Watters DO 06/23/16 Cyclobenzaprine 10 Mg Cgzvsn36 Mg PO TID PRN Spasm #30 TABLET Prov:Derrell Metcalf MD 04/08/16 Naproxen (Naprosyn)500 Mg Tpvaep920 Mg PO BID PRN For Pain #30 TABLET Prov:Derrell Metcalf MD 04/08/16 Benzonatate 100 Mg Rqittms350 Mg PO TID cough #30 CAPSULE Prov:Rasta Reich PA-C 03/05/16 Benzocaine/Menthol (Cepacol Sore Throat Lozenge)1 Each Lozenge1 Each MM QID sore throat #20 LOZENGE Prov:Rasta Reich PA-C 03/05/16 Buspirone 10 Mg Kbpazy49 Mg PO BID #60 TABLET Ref 0 Prov:Derrell Metcalf MD 01/22/16 Ondansetron 8 Mg Tablet8 Mg PO QID PRN For Nausea #10 TABLET Prov:Derrell Metcalf MD 01/09/16 Valproic Acid 250 Mg Osxuaqk919 Mg PO TID #90 CAPSULE Ref 0 Swallowed whole without chewing to avoid local irritation of the mouth and throat. Prov:Derrell Metcalf MD 01/09/16 Azithromycin (Zithromax (Z-John))250 Mg Utpwsi341 Mg PO DIRECTED #6 TABLET Take two tablets by mouth on day 1, then take one tablet daily on days 2 through 5. Prov:Pal Watters DO 01/05/16 History History of ENT Problems?: No HEENT History: Positive for:: Dysphagia Denies:: Abnormal Airway Difficult Intubation Hearing Problem Denture Type: None Teeth Condition: Within Normal Limits Hx of Heart Problems?: Yes Cardiovascular History: Denies:: Cardiac Surgery Congestive Heart Failure Heart Murmur Hypertension Irregular Heartbeat Other Cardiac History: Hx of heart murmur "I have a hole in my heart." Hx of Respiratory Problem?: Yes Respiratory History: Positive for:: Asthma Dyspnea (w/ exertion but very active) Pneumonia (Also bronchitis ) Denies:: Tuberculosis Other History/Comment ROS negative Hx Neurologic Problems?: Yes Neurological History: Positive for:: Dizziness (related to eyes) Headaches (related to eyes) Denies:: CVA Hx of GI Problems?: Yes Other History/Comment abdominal pain, nausea vomiting Hx of Problems?: No Female Hx: Denies:: Currently (LMP 3 weeks ago) Endometriosis Pelvic Inflammatory Problems with Breasts? Skin History: Denies:: History Skin Disorders? Hx Musculoskeletal Problems?: Yes Musculoskeletal History: Positive for:: Musculoskeletal Trauma (fractured Lft 4th finger) Hx of Psycho/Social Problems?: Yes Psycho Social History: Positive for:: Anxiety Hx Depression Hx Surgeries?: Yes (Appy, Chip hand reconstruction, skin graft, wisdom teeth) Hx Any Other Health Problems?: Yes Other History: Denies:: Cancer Endocrine Disease Hospitalization Thyroid Disease History Blood Transfusions: Denies:: Blood Transfusions Hx Diabetes: No Hx Alcohol Use: Yes (Socially; social marijuana use)Hx Substance Use: No Smoking Status: Current Every Day Smoker Have You Smoked inLast 12 mo: Yes Stop/Bang Treated for Sleep Apnea?: No Do You Have a CPAP Machine?: No S-Snoring: Do You Snore Loudly: No T-Tired: feel tired, fatigued: Yes O-Obsered: Observed not breath: No P-Blood Pressure: treated: No B- Body Mass Index > 35 kg/m2: No A- Age over 50: No N- Neck Large Circumference: No G- Gender Male: No LUCIA Total Score: 1 Risk Assessment Category Category 1A: Patient has history of documented sleep apnea, and HAS NOT received any narcotic, sedative or anesthesia administration during this stay. Category 1B: Patient has history of documented sleep apnea, and HAS received any narcotic , sedative or anesthesia administration during this stay Category 2: Patient has SUSPECTED Obstructive Sleep Apnea, and HAS received any narcotic , sedative or anesthesia administration during this stay. Category 3: Patient has SUSPECTED Obstructive Sleep Apnea and HAS NOT received narcotic, sedative or anesthesia administration during this stay. Category 4: Outpatient in Procedural Areas with known sleep apnea or who screen positive for High Risk via the STOP/BANG questionnaire. Exam Exam Vital Signs Vital Signs Date Time Temp Pulse Resp B/P Pulse Ox O2 Delivery O2 Flow Rate FiO2 08/15/16 13:03 78 16 106/61 98 Room Air General Appearance: Alert, Oriented X3, Cooperative HEENT/AIRWAY: MP 1 Lungs: Clear to Auscultation Heart: Exam Unremarkable Plan Impression Patient chart reviewed, patient interviewed and anesthestic plan with risks, benefits, and alternatives discussed, and informed consent obtained. ASA Physical Status: ASA3 Severe Disease Anesthetic Plan: TIVA Bene/Risks/Altern/Consents: Yes HP Complete Prior to Induction: Yes Espinoza Benites MD Aug 15, 2016 13:25
[2016-08-15] MEDS ORDERED: Lactated Ringer's 1,000 ML IV ONE (13:43)
[2016-08-15 13:52] VITALS: BP 103/64; PULSE 86; RESP 16; O2SAT 98
[2016-08-15 14:03] VITALS: BP 108/61; PULSE 83; RESP 16; O2SAT 100
[2016-08-15 14:09] VITALS: BP 100/61; PULSE 90; RESP 14; O2SAT 100
--- NOTE | 2016-08-15 14:12 | PCM.ANEP1 ---
Post Anesthesia PACU Phase 1 Assessment Vital Signs Vital Signs Date Time Temp Pulse Resp B/P Pulse Ox O2 Delivery O2 Flow Rate FiO2 08/15/16 14:03 83 16 108/61 100 Room Air 08/15/16 13:52 86 16 103/64 98 Room Air 08/15/16 13:03 78 16 106/61 98 Room Air Anesthetic Administered: TIVA Level of Alertness: Awake, talking WALTERS's with Equal Strength: Yes Pain: No Nausea or Vomiting: No CV Function & Hydration Stable: Yes Airway Device: Oxygen Delivery: Room Air Lungs: Clear to Auscultation Dermatome Level: Full Sensation PACU Phase 2 Assessment Complications: No Follow up Care: No Patient Instructions Provided: N/A Espinoza Benites MD Aug 15, 2016 14:12
--- NOTE | 2016-08-15 14:59 | ENDO ---
[address] [address] ENDOSCOPY PROCEDURE PATIENT: MEREDITH DAVIS : 1995 MR#: [id number] ADMIT: 08/15/2016 JOB ID: [id number] DATE: 08/15/2016 PROCEDURE: Esophagogastroduodenoscopy. INDICATION: Nausea and vomiting. Please see Dr. Benites's anesthesia report for details regarding ASA classification, Mallampati score, and medications. INSTRUMENT USED: [id number] PROCEDURE DETAILS: After informed consent was obtained, the patient was brought into the GI suite, where she was placed on oxygen via nasal cannula and monitored with continuous pulse oximeter, telemetry, and blood pressure monitoring. A time-out was performed. Then, she was placed in a left lateral decubitus position and medications were administered for sedation. A bite block was placed. The standard EGD scope was inserted through the bite block and advanced under direct visualization to the second portion of duodenum without difficulty. FINDINGS: 1. Normal-appearing duodenal bulb, first and second portion. Multiple random biopsies were obtained. 2. Normal-appearing pylorus, antrum and gastric body. 3. Retroflexed views in the gastric body revealed a normal-appearing cardia and fundus. 4. Multiple random biopsies were obtained throughout the antrum and body of the stomach. 5. Normal appearing GE junction with regular Z-line at 37 cm. 6. Normal-appearing esophagus. IMPRESSION: Normal esophagogastroduodenoscopy exam to second portion of the duodenum. No findings to explain patient's nausea and vomiting. RECOMMENDATIONS: 1. Small frequent meals. 2. Ultrasound of the abdomen. 3. If unable to tolerate p.o., go to the emergency department for intravenous hydration and possible admission to the hospital. COMPLICATIONS: None. ESTIMATED BLOOD LOSS: Less than 5 mL.
--- NOTE | 2016-08-22 09:33 | PATH ---
SURGICAL PATHOLOGY Attending Physician:Shirin Joe CASE STATUS: Signed Out PATIENT NAME: MEREDITH DAVIS PID: [id number] : 1995 DATE COLLECTED:08/15/2016 00:00 SPECIMEN: 1: Duodenum, Biopsy 2: Gastric, Biopsy CLINICAL HISTORY: 1). DUODENAL BIOPSY 2). RANDOM GASTRIC BIOPSY (RULE OUT H.PYLORI) FINAL DIAGNOSIS: 1.DUODENAL BIOPSY: DUODENAL MUCOSA WITH NO DIAGNOSTIC ALTERATIONS. Negative for inflammation, sprue, dysplasia, and malignancy. 2.RANDOM GASTRIC BIOPSY (RULE OUT H. PYLORI): BODY-TYPE MUCOSA WITH NO DIAGNOSTIC ALTERATIONS. Negative for Helicobacter organisms on H&E stains. Negative for intestinal metaplasia. Negative for dysplasia and malignancy. Immunohistochemical stains for Helicobacter pylori are pending, addendum to follow. ICD10 R10.13 GROSS DESCRIPTION: Received two formalin-filled containers, both labeled with the patient's name. 1. In a container labeled "duodenal", ID confirmed per client, specimen consists of four portions of tissue which aggregate to 0.3 x 0.3 x 0.2 cm. The specimen is entirely submitted in cassette 1A. 2. In a container labeled "random gastric", specimen consists of our portions of tissue which aggregate to 0.5 x 0.3 x 0.2 cm. The specimen is entirely submitted in cassette 2A. ([facility] [place]:[id number]) MICRO DESCRIPTION: See diagnosis. ICD-9 CODES: CPT CODES: 1: 18338 2: 49024, 98054 PROCEDURE/ADDENDA: Immunohistochemistry SPI Interpretation {Not Entered} Results-Comments This addendum is issued to report the results of immunohistochemical staining for Helicobacter pylori. The gastric mucosa (specimen 2) was stained with monoclonal antibody to Helicobacter pylori (SP48). Positive and negative controls stain appropriately. Result: The patient tissue shows no Helicobacter staining. Interpretation: The gastric mucosa is negative for Helicobacter pylori by immunohistochemical stains. This test was developed and its performance characteristics determined by [facility] [facility]. It has not been cleared or approved by the [place]. [place]. Food and Drug Administration. The FDA has determined that such clearance or approval is not necessary. This test is used for clinical purposes. It should not be regarded as investigational or for research. Electronically Signed Out Janice Palomino MD Electronically Signed Out Janice Palomino MD [facility] [address], [place] [address] Technical component performed at [facility], [address], [place], [address]
== END 2016-08-15 23:59 | disposition home or self-care (01) ==
LOC: END 12:01
PROVIDERS: ATTEND Internal Medicine Gastroenterology
DX: R11.2 Nausea with vomiting, unspecified (principal); F43.10 Post-traumatic stress disorder, unspecified; F31.9 Bipolar disorder, unspecified; J45.909 Unspecified asthma, uncomplicated; F17.210 Nicotine dependence, cigarettes, uncomplicated; F41.9 Anxiety disorder, unspecified
CPT/HCPCS: 43239; J7120

== ENCOUNTER 2016-10-07 20:45 | Emergency (ER) | payer OTHER ==
[~2016-10-07] VITALS: Ht 162.6 cm; Wt 65.0 kg
[~2016-10-07 20:45] MED LIST changes: -DEP250A PO
[2016-10-07 20:55] VITALS: BP 109/75; PULSE 94; RESP 20; O2SAT 99
--- NOTE | 2016-10-07 21:23 | ED.REPORT ---
HPI- Female Date of Service Oct 07, 2016 ED Provider: Travis Mendes DO Pt is a 20 y/o female who presents to the ED c/o vaginal bleeding onset one month ago. She states her discharge has been black and her period has lasted for 4 weeks. She has an implant in for control, and states that her periods usually last 3 days. Additional symptoms include vaginal pain, back pain , vomiting, trouble sleeping, abdominal pain, and diaphoresis. She denies SOB, neck pain, or cough. Nursing Notes Stated Complaint: PAIN ALL OVER,WEIRD VAGINAL BLEEDING,VOMITTING Chief Complaint: General Complaint Nursing Notes Reviewed: Yes Allergies: Coded Allergies: hydrocodone (Verified Allergy, Severe, Hives, Itching, SOB, Throat Tightness, 08/15/16) shellfish derived (Verified Allergy, Severe, Anaphylaxis, 08/15/16) ethyl alcohol (Verified Allergy, Intermediate, Rash,Itching, 08/15/16) RUBBING ALCOHOL chocolate flavor (Verified Allergy, Unknown, 08/15/16) ketorolac (Verified Allergy, Unknown, 08/15/16) Scheduled Omeprazole (Omeprazole) 20 Mg Capsule.dr 20 MG PO DAILY Pnv No.122/Iron/Folic Acid ( Multi Tablet) 27 Mg Iron-800 Mcg Tablet 1 EACH PO DAILY Rizatriptan ODT (Maxalt TWISTER FRAME TENDER) 10 Mg Tablet 10 MG PO QID Scheduled PRN Hydroxyzine Pamoate (HydrOXYzine Pamoate) 25 Mg Capsule 25 MG PO TID PRN PRN For Itching Hydroxyzine Pamoate (Vistaril) 50 Mg Capsule 50 MG PO TID PRN PRN For Anxiety Levalbuterol Tartrate (Xopenex Hfa) 15 Gm Hfa.aer.ad 1 PUFF IH Q4 PRN PRN For Wheezing Ondansetron ODT (Zofran ODT) 4 Mg Tablet 4 MG PO Q4H PRN PRN For Nausea General Time Seen by MD: 21:22 Chief Complaint Vaginal bleeding... (Moderate) Hx Obtained From: Patient Arrived By: Walk-in Sudden in Onset?: No Onset Occurred: More than a week ago... (1 month) Quality: Painful Severity: Current: Moderate Severity: Maximum: Severe Recent Healthcare: No recent hospitalization, Recent doctor visit Similar Sx Previous: No Past Medical History Past Medical History ADHD Hemorrhoids bipolar disorder PTSD anxiety Reports: Depression, Migraines Past Surgical History finger fracture repair polydactyly surgery as a child Reports: Appendectomy Smoking History Current Every Day Smoker Social History Alcohol Use: Denies alcohol use Drug Use: Denies drug use Other Social History: Good social support, Local resident Occupation staying with boyfriend Ambulatory Status Independent Review of Systems Vaginal pain Trouble sleeping GI: Reports: Abdominal pain, Vomiting Female: Reports: Vaginal bleeding - abnl Musculoskeletal: Reports: Back pain, Denies: Neck pain Skin: Reports Diaphoresis Complete sys rev & neg: except as marked. Respiratory: Denies: Non-productive cough, Prod cough, clear, Shortness of breath Physical Exam Initial Vital Signs Vital Signs (First) Date Time Temp Pulse Resp B/P Pulse Ox O2 Delivery O2 Flow Rate FiO2 10/07/16 20:55 36.4 94 20 109/75 99 Room Air Initial VS: Reviewed Head / Eyes: Atraumatic, Normocephalic Neck: Supple, Full range of motion Extremities: Vascular intact, Neuro intact, No swelling, No tenderness Skin: Warm, Dry, No cyanosis Neurologic: Alert, Oriented, Nonfocal Psychiatric: Mood/affect normal, Behavior normal, Normal thought content Female Genitourinary: Automatic Lathe Operator present, Atraumatic, External genitalia NL, No foreign body Dried blood in vaginal vault General/Constitutional: Awake, Alert Respiratory / Chest: Atraumatic, Breath sounds NL, Breath sounds = bilat, No respiratory distress Cardiovascular: Heart rate NL, Regular rhythm, Heart sounds NL Abdomen: Atraumatic, Soft Tenderness/Guarding/Rebound: Positive: Tender LLQ... (Mild), Tender suprapubic Interpretation & Diagnostics Pelvis Ultrasound: Impression: Normal findings Wet-read: ED physician Lab Results Interpretation Result Diagram: 10/07/16212910/07/162129 Test 10/07/16 21:30 10/07/16 21:35 White Blood Count 6.6th/mm3 (3.8-10.1) Red Blood Count 4.69mil/mm3 (3.90-5.20) Hemoglobin 14.1g/dL (12.0-15.6) Hematocrit 40.8% (35.0-46.0) Mean Corpuscular Volume 87.0fL (81-100) Mean Corpuscular Hemoglobin 30.1pg (27.0-35.0) Mean Corpuscular Hemoglobin Concent 34.6% (32.0-37.0) Red Cell Distribution Width 12.5% (12.3-15.4) Platelet Count 275bil/L (150-400) Neutrophils (%) (Auto) 51.5% (40-74) Lymphocytes (%) (Auto) 34.5% (14-46) Monocytes (%) (Auto) 8.2% (4-12) Eosinophils (%) (Auto) 5.3% (0-5) Basophils (%) (Auto) 0.3% (0-3) Sodium Level 140mEq/L (134-144) Potassium Level 3.9mEq/L (3.5-5.2) Chloride Level 106mEq/L (97-108) Carbon Dioxide Level 20mmol/L (18-29) Blood Urea Nitrogen 11mg/dL (6-20) Creatinine 0.67mg/dL (0.57-1.00) Estimat Glomerular Filtration Rate 162mL/min (>59) Glucose Level 86mg/dL (60-99) Calcium Level 9.6mg/dL (8.5-10.1) Total Bilirubin 0.6mg/dL (0.0-1.2) Aspartate Amino Transf (AST/SGOT) 23U/L (0-50) Alanine Aminotransferase (ALT/SGPT) 27U/L (0-32) Alkaline Phosphatase 80U/L (25-150) Total Protein 7.4g/dL (6.4-8.4) Albumin 4.4g/dL (3.4-5.0) Urine Color Yellow (YELLOW) Urine Appearance Clear (CLEAR,HAZY) Urine pH 8.0 (5.0-8.0) Urine Specific [place] 1.010 (1.003-1.035) Urine Protein Negativemg/dL (NEG,TRACE) Urine Glucose (UA) Negativemg/dL (NEGATIVE) Urine Ketones Negativemg/dL (NEGATIVE) Urine Occult Blood Large (NEGATIVE) Urine Nitrite Negative (NEGATIVE) Urine Bilirubin Negative (NEGATIVE) Urine Urobilinogen Normalmg/dL (NORMAL) Urine Leukocyte Esterase Negative (NEGATIVE) Urine RBC 0-2/hpf (0-2) Urine WBC 0-5/hpf (0-5) Urine Epithelial Cells Few/hpf (NONE-MOD) Urine Crystals None seen (NONE SEEN) Urine Bacteria Few/hpf (NONE-FEW) Urine Hyaline Casts None/lpf (NONE) Urine Granular Casts None seen (NONE SEEN) Urine Waxy Casts None seen (NONE SEEN) Urine Red Blood Cell Casts None seen (NONE SEEN) Urine White Blood Cell Casts None seen (NONE SEEN) Urine Mucus None seen (None Seen) Urine Trichomonas None seen (NONE SEEN) Urine Yeast None (NONE SEEN) Urinalysis Comment None Urine Culture Reflexed Not indicated Re-Eval/Medical Decision Med Decision/Clinical Course Reassuring diagnostics. Pelvic pain associated with abnormal menstrual flow. Most likely related to her hormonal control. No signs of pelvic inflammatory disease. Cervicitis is a possibility. 7 a course of doxycycline. I am Rocephin given. Short course of Percocet for pain. Close outpatient follow-up recommended. Routine opiate warnings given. Source of Hx: Old records Re-Evaluation/Progress #1: Time of Eval: 23:20 Re-Evaluation/Progress Note: Patient rechecked. Performed exam with pmo consultant present. Re-Evaluation/Progress #2: Time of Eval: 00:10 Re-Evaluation/Progress Note: Patient rechecked. Discussed plan for discharge. Patient understands and agrees with plan. F/U instructions and RTER warnings given. All questions addressed at this time. Counseled Regarding: Diagnosis, Lab results, Need for follow-up, When/why to return to ED Discharge & Departure Impression: Primary Impression: Pelvic pain Additional Impression: Dysmenorrhea Disposition: Home Discharge Condition All VS Reviewed: Yes Condition: Stable Patient Instructions: Dysmenorrhea (ED), Pelvic Pain in Women (ED) Additional Instructions: I suspect that your pelvic pain is related to the hormones. This should get better as you move through your menstrual cycle. Infection is always a possibility. Take doxycycline twice daily for 7 days. Avoid direct sunlight while taking the doxycycline. Take 1-2 Percocet every 6 hours as needed for severe pain. This is an opiate can be highly sedating. Do not drive or drink alcohol or consume acetaminophen while taking Percocet. I would like you to set up a follow-up for later this week with her primary care physician. We have sent off urine testing for special infections this will be available in roughly 3-5 days. Return if any problems or any new or worrisome symptoms. Referrals: [facility] (PCP) Scribe Attestation Portions of this note were transcribed by Cierra Mccarthy. I, Dr. Mendes, personally performed the history, physical exam and medical decision-making; I reviewed and confirmed the accuracy of the information in the transcribed note. copies to: [facility] Travis Mendes DO Oct 07, 2016 21:23 Cierra Mccarthy Oct 07, 2016 21:28
[2016-10-07] MEDS ORDERED: HYDROmorphone 1 mg/mL Inj IM ONE (21:30)
[2016-10-07 21:40] LABS: BASOPHILS % (AUTO) 0.3 % (0-3); EOSINOPHILS % (AUTO) 5.3 % (0-5); MONOCYTES % (AUTO) 8.2 % (4-12); Mean Corpuscular Hemoglobin 30.1 pg (27.0-35.0); NEUTROPHILS % (AUTO) 51.5 % (40-74); Platelet Count 275 bil/L (150-400)
[2016-10-07 21:57] LABS: APPEARANCE,URINE CLEAR (CLEAR,HAZY); COLOR,URINE YELLOW (YELLOW); OCCULT BLOOD,URINE LARGE (NEGATIVE); UROBILINOGEN,URINE NORMAL (NORMAL)
[2016-10-07] MEDS ORDERED: hydrOXYzine 2 mg/mL 473 mL Syrup PO ONE (23:10)
[2016-10-07] MEDS ORDERED: hydrOXYzine Pamoate 25 mg Capsule PO ONE (23:10)
[2016-10-07] MEDS ORDERED: cefTRIAXone Inj 250 MG, Lidocaine PF 1% Inj 0.9 ML in Syringe 1 EACH IM ONE (23:35)
[2016-10-08 00:37] VITALS: BP 104/67; PULSE 75; RESP 18; O2SAT 100
--- NOTE | 2016-10-08 11:30 | DRSVH ---
PROCEDURE: US PELVIC SONOGRAM + TRANSVAGINAL SONOGRAM INDICATIONS: pelvic pain, abnormal bleeding, LLQ pain TECHNIQUE: Real-time scanning was performed of the pelvic organs, with image documentation. Additional endovagi nal scanning was necessary due to incomplete visualization of the adnexal and endometrial structures by transabdominal scanning. COMPARISON: None. FINDINGS: (orthogonal measurements) Uterus size: 6.2 x 6.1 x 3.3 cm Endometrium thickness: 1.2 cm Right ovary size: 2.3 x 2.2 x 1.4 cm Transabdominal scanning: Limited scanning through the kidneys shows no hydronephrosis. No pathologi c free abdominal or pelvic fluid. Endovaginal scanning: Uterus: Uterus is normal in size and appearance. Endometrium is within normal physiologic limits. Ovaries: Normal right ovary. Left ovary not visualized. IMPRESSION: The left ovary is not visualized. No acute process seen. Ectopic cannot be ex cluded and clinical correlation with beta-hCGs is recommended. Report given to Dr. Mendes by the beehive kiln charcoal burner at 2215 hrs. 10/07/2016. Dictated by: Oren Beltre [facility] Interpreted: Matthew Maxwell MD on 10/08/2016 at 9:59 Approved by: Matthew Maxwell M.D. on 10/08/2016 at 11:28
== END 2016-10-08 00:37 | disposition home or self-care (01) ==
LOC: SED 20:45
DX: R10.2 Pelvic and perineal pain (principal); N94.6 Dysmenorrhea, unspecified; M54.9 Dorsalgia, unspecified; R61 Generalized hyperhidrosis; G43.909 Migraine, unspecified, not intractable, without status migrainosus; F41.8 Other specified anxiety disorders; F31.9 Bipolar disorder, unspecified; F90.9 Attention-deficit hyperactivity disorder, unspecified type; F17.200 Nicotine dependence, unspecified, uncomplicated; Z88.5 Allergy status to narcotic agent; Z88.6 Allergy status to analgesic agent; Z88.8 Allergy status to other drugs, medicaments and biological substances; Z91.013 Allergy to seafood; Z91.018 Allergy to other foods
CPT/HCPCS: 36415; 76830; 76856; 80053; 81000; 81025; 85025; 87491; 87591; 96372; 99285; J0696; J1170; Q0177